=== PATIENT | male | born 1970 | race Caucasian/White ===

== ENCOUNTER 2023-07-03 05:28 | Day surgery (SDC) | payer BC ==
[2023-06-26 12:22] LABS: BASOPHILS % (AUTO) 0.3 % (0-1); EOSINOPHILS # (AUTO) 1.3 X10'3 (0-0.9); EOSINOPHILS % (AUTO) 14.2 % (0-6); LYMPHOCYTES # (AUTO) 1.2 X10'3 (1.1-4.8); LYMPHOCYTES % (AUTO) 13.9 % (21-51); MEAN CORPUSCULAR HEMOGLOBIN 29.7 PG (27.0-31.0); MEAN CORPUSCULAR HGB CONC 33.6 g/dL (33.0-36.5); MEAN CORPUSCULAR VOLUME 88.2 FL (78-98); MONOCYTES # (AUTO) 0.8 X10'3 (0-0.9); NEUTROPHILS # (AUTO) 5.6 X10'3 (1.8-7.7); NEUTROPHILS % (AUTO) 62.6 % (42-75); PRE OP HEMATOCRIT 43.4 % (42.0-52.0); PRE OP HEMOGLOBIN 14.6 g/dL (14.0-17.9); PRE OP PLATELET COUNT 243 X10'3 (140-440); RED BLOOD COUNT 4.92 X10'6 (4.70-6.10); RED CELL DISTRIBUTION WIDTH 15.6 % (11.5-14.5)
[2023-06-26 12:37] LABS: ALBUMIN 3.1 G/DL (3.4-5.0); ALBUMIN/GLOBULIN RATIO 0.9 (1.1-1.5); ALKALINE PHOSPHATASE 59 IU/L (46-116); BLOOD UREA NITROGEN 14 MG/DL (7-18); BUN/CREATININE RATIO 11.7 (10.0-20.0); CALCIUM 10.3 MG/DL (8.5-10.1); CHLORIDE 107 MMOL/L (99-107); PRE OP ALT 25 U/L (30-65); PRE OP ANION GAP 6 (8-16); PRE OP AST 20 U/L (10-37); PRE OP BILIRUB, TOTAL 0.7 MG/DL (0.0-1.0); PRE OP GLUCOSE 114 MG/DL (70-104); PRE OP POTASSIUM 4.2 MMOL/L (3.4-5.1); PRE OP SODIUM 140 MMOL/L (135-145); TOTAL CARBON DIOXIDE 27.3 MMOL/L (24-32); TOTAL PROTEIN 6.4 G/DL (6.4-8.2); eGFR 64 ML/MIN
[~2023-07-03] VITALS: Ht 182.9 cm; Wt 174.0 kg
[2023-07-03] VITALS (14 sets, daily range): BP systolic 111–130; BP diastolic 69–76; PULSE 74–90; RESP 10–21; TEMP 98; O2SAT 91–98
[~2023-07-03 05:28] MED LIST: AMLO-139 PO; ASPI-1071 PO; GLIP5TAB26 PO; IBUP-1986 PO; METF-438 PO; METO-411 PO; SEMA1PEN3 SQ; ringers solution, lacted 1,000 ML IV SCH
[2023-07-03] MEDS ORDERED: famotidine 20mg tablet PO ONE (05:30)
[2023-07-03] MEDS ORDERED: DOCUMENT DATE & TIME OF BETA-BLOCKER PO ONE (05:30)
[2023-07-03] MEDS ORDERED: ceFAZolin inj. 3,000 MG in normal saline 100ml IV soln 100 ML IV ONE (05:30)
[2023-07-03] MEDS ORDERED: BUPIVAcaine/PF 2.5 mg/ml (0.25%) 30ml vial ONE (06:44)
[2023-07-03] MEDS ORDERED: LIDOcaine 1% 30ml preserv. free vial ONE (06:44)
[2023-07-03] MEDS ORDERED: sevoflurane 250ml liquid IH ONE (07:26)
[2023-07-03] MEDS ORDERED: midazolam 1 mg/ML 2ml injection ONE (07:28)
[2023-07-03] MEDS ORDERED: fentaNYL /PF 50mcg/ml 5ml ampule ONE (07:29)
[2023-07-03] MEDS ORDERED: proCHLORperazine 10 MG/2 ml inj IV PRN (07:55)
[2023-07-03] MEDS ORDERED: acetaminophen 1,000mg/100ml IV 100 ML IV PRN (07:55)
[2023-07-03] MEDS ORDERED: ketorolac trometh. 30mg/ml inj. IV ONE (07:55)
[2023-07-03] MEDS ORDERED: HYDROmorphone/PF 0.2 MG/ML SYRINGE IV PRN ×2 (07:55)
[2023-07-03] MEDS ORDERED: labetalol 20mg/4ml (5mg/ml) syringe IV PRN (07:55)
[2023-07-03] MEDS ORDERED: hydrALAZINE 20mg/ml inj. IV PRN (07:55)
[2023-07-03] MEDS ORDERED: meperidine/PF 25mg/ml syringe IV PRN ×3 (07:55)
[2023-07-03] MEDS ORDERED: ringers solution, lacted 1,000 ML IV SCH (07:55)
[2023-07-03] MEDS ORDERED: ondansetron/PF 4mg/2ml inj IV PRN (07:55)
[2023-07-03] MEDS ORDERED: rocuronium 10mg/ml inj IV ONE (07:59)
[2023-07-03] MEDS ORDERED: LIDOcaine 2% (20mg/ml) 5ml vial ONE (07:59)
[2023-07-03] MEDS ORDERED: ondansetron/PF 4mg/2ml inj ONE (07:59)
[2023-07-03] MEDS ORDERED: propofol inj 0 ML IV ONE ×2 (07:59)
[2023-07-03] MEDS ORDERED: dexamethasone sod phosphate 4mg/ml inj. ONE (07:59)
[2023-07-03] MEDS ORDERED: ePHEDrine 50MG/ML INJ. ONE (08:52)
[2023-07-03] MEDS ORDERED: neostigmine methylsulfate 1 MG/ML 10ml vial ONE (09:40)
[2023-07-03] MEDS ORDERED: glycopyrrolate 0.2mg/ml inj ONE (09:40)
[2023-07-03] MEDS ORDERED: propofol inj 20 ML IV ONE ×2 (09:40)
--- NOTE | 2023-07-03 10:05 | NUR ---
Received from OR via [facility], accompanied by Anesthesiologist DR CHEEMA and report given by Anesthesiologist. PT IS GROGGY BUT RESPONDS TO VERBAL STIMULI AND FOLLOWS COMMANDS. PT PLACED IN BEDSIDE MONITOR, VSS. PT IS IN SR WITH RATE IN 90'S. PT IS IN RECEIVING 8L O2 TO MASK AND TOLERATING WELL WITH O2 SAT >95%. WILL TITRATE DOWN PT TOLERATES. PT HAS 20G PIV TO LEFT AHDN WITH LR INFUSING ORDERED. PT HAS BAND-AID X4 ACROSS ABD THAT ARE ALL CDI. PT DENIES PAIN AT THIS TIME. WILL CONTINUE TO ASSESS
[2023-07-03] MEDS ORDERED: oxyCODONE/APAP 5-325mg tablet PO PRN (10:15)
--- NOTE | 2023-07-03 11:09 | NUR ---
CALL PLACED TO PHARMACY IN REGARDS TO TORADOL ORDER WITH CRE- 1.2. PHARMACIST STATES IT IS OK TO GIVE THE ONE TIME DOSE OF 30MG TORADOL D/T PT HAVING GOOD OVERALL RENAL FUNCTION.
--- NOTE | 2023-07-03 11:55 | NUR ---
DC HOME: ALL DISCHARGE CRITERIA HAS BEEN MET. VSS, PAIN AT TOLERABLE LEVEL. ABLE TO SAFELY AMBULATE AND TRANSFER SELF. PT VOIDED 125ML LIGHT SONIA URINE, DENIED ANY DIFFICULTY. IV TAKEN OUT WITHOUT ANY COMPLICATIONS. ALL DISCHARGE INSTRUCTIONS COVERED WITH PATIENT AND ALL QUESTIONS ANSWERED. PT EDUCATED ON USE OF HOME CPAP THROUGH REMAINDER OF TODAY AND HE STATES HE PLANS ON SLEEPING IN [place]. PATIENT TAKEN OUT VIA WHEELCHAIR TO PERSONAL VEHICLE WHERE [place]OVE PATIENT HOME.
== END 2023-07-03 11:48 | disposition home or self-care (01) ==
LOC: PAS 05:28
PROVIDERS: ATTEND Surgery
DX: K40.90 Unilateral inguinal hernia, without obstruction or gangrene, not specified as recurrent (principal); G47.33 Obstructive sleep apnea (adult) (pediatric); I10 Essential (primary) hypertension; E11.9 Type 2 diabetes mellitus without complications; E66.01 Morbid (severe) obesity due to excess calories; Z68.43 Body mass index [BMI] 50.0-59.9, adult; Z72.89 Other problems related to lifestyle; Z98.890 Other specified postprocedural states; Z88.2 Allergy status to sulfonamides; Z88.8 Allergy status to other drugs, medicaments and biological substances; Z79.899 Other long term (current) drug therapy; Z79.84 Long term (current) use of oral hypoglycemic drugs; Z83.3 Family history of diabetes mellitus; Z82.49 Family history of ischemic heart disease and other diseases of the circulatory system; Z82.61 Family history of arthritis
CPT/HCPCS: 36415; 49650; 80053; 82948; 85025; 93005; C1781; J0131; J0690; J1100; J1885; J2175; J2250; J2405; J2704; J2710; J3010; J3490; J7030; J7120; S2900; Z7506; Z7508; Z7512; A4215; A4618; C1758